=== PATIENT | female | born 1970 | race African-American/Black ===

== ENCOUNTER 2021-06-05 14:11 | Emergency (ER) | payer OTHER ==
[~2021-06-05] VITALS: Ht 172.7 cm; Wt 141.1 kg
[~2021-06-05 14:11] MED LIST: ALBUTEROL INHAL17 GM IH; AMLODIPINE BESY10 MG PO; ASA5UEC PO; AZITHROMYCIN 2250 MG PO; AZITHROMYCIN PO; CIPROFLOXACIN500 M1 PO; FLEXERIL PO; IBUPROFEN 600600 M1 PO; K-DUR 20 MEQ T20 MEQ PO; LISINOPRIL-HCT1 EAC1 PO; LISINOPRIL2.5 MG PO; MEDROL DOSPAK21 TA1 PO; METFORMIN; METFORMIN HCL500 M2 PO; NOHOMEMEDICATIONS; NORCO 5-325 TA1 EACH PO; PHENERGAN 25 MG25 M1 PO; PREDNISONE 20 M20 MG PO; PROVENTIL HFA6.7 G1 INH; SIMVASTATIN40 MG PO; SLOW-MAG64 MG PO; VALIUM5 MG PO; VICODIN PO; ZOCOR PO
[2021-06-05 16:16] LABS: URINE BILIRUBIN NEGATIVE (Negative); URINE BLOOD NEGATIVE (Negative); URINE CLARITY CLEAR; URINE COLOR YELLOW; URINE GLUCOSE-RANDOM* NEGATIVE (Negative); URINE KETONES NEGATIVE (Negative); URINE LEUKOCYTES-REFLEX NEGATIVE (Negative); URINE NITRITE-REFLEX NEGATIVE (Negative); URINE PROTEIN (DIPSTICK) TRACE (Negative); URINE UROBILINOGEN 0.2 E.U./dl (0.2-1.0)
[2021-06-05 16:42] LABS: ABSOLUTE NEUTROPHILS 7.6 thou/uL (1.4-8.2); BASOPHILS 0.4 % (0.0-2.0); EOSINOPHILS 0.7 % (0.0-3.0); HEMATOCRIT 37.1 % (37.0-47.0); HEMOGLOBIN 11.8 gm/dL (12.0-15.0); MCH 23.9 pg (26.0-34.0); MCHC 31.9 g/dL (28.0-37.0); MCV 75.1 fL (80.0-100.0); PLATELET COUNT 388 thou/uL (150-400); POLYS 66.9 % (36.0-66.0); RBC 4.94 mil/uL (4.20-5.00); RDW 16.4 % (10.5-14.5); WBC 11.3 thou/uL (4.0-11.0)
[2021-06-05 16:53] LABS: CALCIUM 8.5 mg/dL (8.5-10.1); CREATININE 1.3 mg/dL (0.6-1.0); POTASSIUM 3.2 mmol/L (3.5-5.1)
[2021-06-05 16:59] LABS: ALBUMIN 3.3 g/dL (3.4-5.0); TOTAL BILIRUBIN 0.6 mg/dL (0.2-1.0); TOTAL PROTEIN 7.3 g/dL (6.4-8.2)
[2021-06-05] MEDS ORDERED: PREDNISONE 20 M20 MG PO (18:10)
[2021-06-05] MEDS ORDERED: CLEOCIN HCL150 MG PO (18:10)
[2021-06-05 18:18] VITALS: BP 188/101
== END 2021-06-05 18:18 | disposition home or self-care (01) ==
LOC: ER 14:11
PROVIDERS: Emergency Medicine
DX: K11.20 Sialoadenitis, unspecified (principal); I10 Essential (primary) hypertension; E11.9 Type 2 diabetes mellitus without complications; Z79.84 Long term (current) use of oral hypoglycemic drugs; Z79.899 Other long term (current) drug therapy; Z88.6 Allergy status to analgesic agent; Z88.0 Allergy status to penicillin